=== PATIENT | female | born 1970 | race African-American/Black ===

== ENCOUNTER 2019-01-15 20:09 | Emergency (ER) | payer MEDICAID ==
[~2019-01-15] VITALS: Ht 160 cm; Wt 81.6 kg
[2019-01-15 20:47] LABS: Basophils # (auto) 0 uL; Eosinophils # (auto) 0.1 uL; Monocytes # (auto) 0.5 uL
[2019-01-15 20:49] LABS: Basophils % (auto) 0.8 % (0.0-2.0); Eosinophils % (auto) 0.9 % (0.0-7.0); Hematocrit 36.2 % (36.0-46.0); Hemoglobin 11.7 g/dL (12.2-16.2); Lymphocytes % (auto) 34.6 % (10.0-50.0); Mean Corpuscular Hemoglobin 24.7 pg (28.0-32.0); Mean Corpuscular Hgb Conc. 32.3 g/dL (32.0-36.0); Mean Corpuscular Volume 76.5 fL (80.0-100.0); Monocytes % (auto) 8.5 % (0.0-12.0); Neutrophils # (auto) 3.3 uL; Neutrophils % (auto) 55.2 % (37.0-80.0); Nucleated Red Blood Cells % 0.2 %; Platelet Count (auto) 205 10^3/uL (140-450); Red Blood Cells 4.73 10^6/uL (4.0-5.20); Red Cell Distribution Width 14.4 % (11.8-14.3); White Blood Cell 5.9 10^3/uL (4.4-10.8)
[2019-01-15 21:00] LABS: INR 0.96 (0.9-1.15); Partial Thromboplastin Time 26.8 sec (23.64-32.05)
[2019-01-15 21:10] LABS: Anion Gap 5 (5-15); Blood Urea Nitrogen 9 mg/dL (7-18); Calcium 9.5 mg/dL (8.5-10.1); Carbon Dioxide 26 mmol/L (21-32); Chloride 109 mmol/L (98-107); Glucose 90 mg/dL (74-106); Magnesium 2.4 mg/dL (1.6-2.6); Potassium 3.6 mmol/L (3.5-5.1); Sodium 140 mmol/L (136-145)
[2019-01-15 21:16] LABS: Alanine Aminotransferase 14 U/L (13-56); Alkaline Phosphatase 51 U/L (45-117); Aspartate Aminotransferase 12 U/L (15-37); BUN/Creatinine Ratio 9.4; GFR African American 80 mL/min; GFR Non-African American 67 mL/min; Total Protein 7.6 g/dL (6.4-8.2)
[2019-01-15 21:17] LABS: Urine Bacteria NONE SEEN /hpf (None Seen); Urine Blood Negative /uL (Negative); Urine Specific Gravity 1.003 (1.001-1.035); Urine WBC <1 /hpf (0 - 5)
[2019-01-16] MEDS ORDERED: LORazepam 0.5 MG TAB PO ONE (00:45)
[2019-01-16 01:33] VITALS: BP 128/84
== END 2019-01-16 01:32 | disposition home or self-care (01) ==
LOC: ER 20:12
DX: F41.9 Anxiety disorder, unspecified (principal)
CPT/HCPCS: 36415; 71046; 80053; 81001; 83735; 84484; 85025; 85610; 85730; 93005

== ENCOUNTER 2021-08-02 09:00 | Emergency (ER) | payer MEDICAID ==
[~2021-08-02] VITALS: Ht 160 cm; Wt 95.3 kg
[2021-08-02 09:02] VITALS: BP 120/84
[2021-08-02] MEDS ORDERED: KETOROLAC TROMETH 60MG/2ML VIAL IM ONE (10:15)
[2021-08-02] MEDS ORDERED: IBUP800T27 PO (10:20)
[2021-08-02] MEDS ORDERED: AMOX-277 PO (10:20)
[2021-08-02] MEDS ORDERED: PRED20TA2 PO (10:20)
== END 2021-08-02 10:26 | disposition home or self-care (01) ==
LOC: ER 09:00
DX: J01.90 Acute sinusitis, unspecified (principal); I10 Essential (primary) hypertension; F17.210 Nicotine dependence, cigarettes, uncomplicated
CPT/HCPCS: 96372; 99283; J1885